=== PATIENT | male | born 1990 | race Two or more races ===

== ENCOUNTER → 2018-07-05 | Emergency (ER) | payer OTHER ==
[~2018-07-05] VITALS: Ht 188 cm; Wt 83.9 kg
[~2018-07-05] MED LIST: LORAZEPAM 1 MG TABLET ONE; LORAZEPAM 1 MG TABLET PO ONE
--- NOTE | 2018-07-05 21:13 | NUR ---
PT EXSPELLED FROM CURRENT HALF WAY HOUSE FOR SMOKING POT. EKG DONE PT REFUSED BLOOD DRAW MD AWARE PLAN TO DISCHARGE PT.
[2018-07-05 21:15] VITALS: BP 123/86
== END | disposition home or self-care (01) ==
LOC: ER 20:25
DX: R00.2 Palpitations (principal); F15.10 Other stimulant abuse, uncomplicated; Z88.1 Allergy status to other antibiotic agents
CPT/HCPCS: A4606; Z7610